=== PATIENT | female | born 1965 | race African-American/Black ===

== ENCOUNTER 2017-01-21 20:42 | Emergency (ER) | payer MEDICAID ==
[~2017-01-21] VITALS: Ht 154.9 cm; Wt 87.0 kg
[2017-01-21 22:25] VITALS: BP 155/89
[2017-01-21 22:42] LABS: CLARITY URINE CLEAR (CLEAR); COLOR URINE YELLOW (YELLOW); KETONES URINE NEGATIVE (NEGATIVE); LEUKOCYTE ESTERASE URINE TRACE (NEGATIVE); NITRITE URINE NEGATIVE (NEGATIVE); OCCULT BLOOD URINE NEGATIVE (NEGATIVE); PH URINE 6.5 (4.5-8.0); PROTEIN URINE NEGATIVE (NEGATIVE); SPECIFIC GRAVITY URINE 1.024 (1.005-1.030)
[2017-01-21 22:46] LABS: BASOPHILS % 0.8 % (0.0-2.0); EOSINOPHILS % 0.5 % (0.0-5.0); HEMOGLOBIN. 12.6 g/dL (12.0-16.0); LYMPHOCYTES % 21.9 % (20.0-50.0); MEAN CORPUSCULAR HEMOGLOBIN 30.5 pg (28.0-32.0); MEAN PLATELET VOLUME 7.8 fl (7.4-10.4); MONOCYTES % 7.7 % (2.0-8.0); NEUTROPHILS % 69.1 % (40.0-76.0); PLATELET 228 x1000/uL (130-400); RED BLOOD CELL COUNT 4.14 mill/uL (4.2-5.4); RED CELL DISTRIBUTION WIDTH 13.4 % (11.6-14.6)
[2017-01-21 22:52] LABS: CHLORIDE 107 mEq/L (98-107)
[2017-01-21 22:59] LABS: CARBON DIOXIDE 27 mEq/L (21-32)
== END 2017-01-21 23:45 | disposition home or self-care (01) ==
LOC: ER 20:42
DX: R33.9 Retention of urine, unspecified (principal); M79.89 Other specified soft tissue disorders; I10 Essential (primary) hypertension; Z88.8 Allergy status to other drugs, medicaments and biological substances
CPT/HCPCS: 36415; 80048; 81001; 85025; 99284; Z7610